=== PATIENT | female | born 1975 | race American Indian/Alaskan Native ===

== ENCOUNTER 2017-08-09 10:43 | Emergency (ER) | payer MEDICAID ==
[2017-08-09] MEDS ORDERED: ZOFRAN IV ONE (11:34)
[2017-08-09] MEDS ORDERED: NACL 0.9% 1000 ML 1,000 ML IV ONE (11:34)
--- NOTE | 2017-08-09 11:42 | Emergency Department Report ---
HPI - General Chief Complaint: Seizure Time Seen by Provider: 08/09/17 11:29 - HPI HPI: This is a 42-year-old female presents to the emergency department from home after she was found passed out. The patient says that she remembers looking at the window at her son this morning and then woke up on the floor. She had a headache both prior to passing out as well as afterwards her chest and complains of some left shoulder pain since the incident. She has a past mental history of migraines, hypertension. She is a tobacco smoker as well as some marijuana. She did not take anything for her symptoms and presentation. Patient admits that she does not "take care of myself" and has not seen a primary care doctor in a few years. She stopped taking her lisinopril for blood pressure years ago secondary to a cough produced. No recent travel or sick contacts at home. ED Past Medical Hx - Past Medical History Previous Medical History?: Yes Hx Hypertension: Yes Hx Headaches / Migraines: Yes - Surgical History Past Surgical History?: Yes Hx Cholecystectomy: Yes Additional Surgical History: 4 c-sections - Social History Smoking Status: Current Every Day Smoker Substance Use Type: Alcohol, Marijuana - Medications Home Medications: Home Medications Medication Instructions Recorded Confirmed Last Taken Type Cephalexin [Keflex] 500 mg PO BID #14 capsule 03/15/15 Unknown Rx Fluconazole [Diflucan] 150 mg PO ONCE #1 tablet 03/15/15 Unknown Rx traMADol [Ultram] 50 mg PO Q6HR PRN #20 tablet 02/10/16 Unknown Rx amLODIPine [Norvasc] 5 mg PO DAILY #30 tab 08/09/17 Unknown Rx ED Review of Systems ROS: Stated complaint: SEIZURE/HYPERTENSION Other details as noted in HPI Comment: All other systems reviewed and negative Constitutional: denies: chills, fever Eyes: denies: eye pain, eye discharge, vision change ENT: denies: ear pain, throat pain Respiratory: denies: cough, shortness of breath, wheezing Cardiovascular: syncope. denies: chest pain, palpitations Gastrointestinal: denies: abdominal pain, nausea, diarrhea Genitourinary: denies: urgency, dysuria, discharge Musculoskeletal: arthralgia. denies: back pain, joint swelling Skin: denies: rash, lesions Neurological: headache Physical Exam - Physical Exam Vital Signs: Vital Signs 08/09/17 10:57 Temperature 98.9 F Pulse Rate 69 Respiratory 16 Rate Blood Pressure 179/110 O2 Sat by Pulse 98 Oximetry Physical Exam: GENERAL: The patient is well-developed well-nourished. HENT: Normocephalic. Atraumatic. Patient has moist mucous membranes. EYES: Extraocular motions are intact. Pupils equal reactive to light bilaterally. No nystagmus. NECK: Supple. Trachea is midline. CHEST/LUNGS: Clear to auscultation. There is no respiratory distress noted. HEART/CARDIOVASCULAR: Regular. There is no tachycardia. There is no gallop rub or murmur. ABDOMEN: Abdomen is soft, nontender. Patient has normal bowel sounds. There is no abdominal distention. SKIN: There is no rash. There is no edema. There is no diaphoresis. NEURO: The patient is awake, alert, and oriented. The patient is cooperative. The patient has no focal neurologic deficits. The patient has normal speech. Cranial nerves II through XII grossly intact. MUSCULOSKELETAL: There is no tenderness or deformity. There is no evidence of acute injury. ED Course Vital Signs 08/09/17 10:57 Temperature 98.9 F Pulse Rate 69 Respiratory 16 Rate Blood Pressure 179/110 O2 Sat by Pulse 98 Oximetry ED Medical Decision Making - Lab Data Result diagrams: 08/09/17 12:09 08/09/17 12:09 - Radiology Data Radiology results: report reviewed, image reviewed interpreted by me: X-ray of the left shoulder does not show any fracture, as the patient or any acute process. CT of the head does not show any acute intracranial process including no ischemia, shift, mass, bleeding or skull fracture. Ultrasound of the upper abdomen shows a fatty pancreas. - Medical Decision Making 42-year-old female presents to the emergency department after having some type of a syncopal episode. CT of the head does not show any bleed, shift, mass or any acute process. She complained of some left shoulder pain which did not show any fracture or dislocation on x-ray. Labs are unremarkable except for elevated ALT. For this reason was done that showed a fatty pancreas but otherwise no acute process. She had some hypertension but it was at a reasonable level and did not require any acute intervention. The patient is been noncompliant with her medications for multiple years. Patient was reevaluated multiple times for multiple hours and has remained awake, alert without any further syncopal episodes and without any acute distress. She appeared safe for discharge home. She was started on Norvasc for her blood pressure and we discussed dietary changes and keeping a blood pressure log. She was given multiple referrals for primary care. She will return to the ER with any worsening of her symptoms or any acute distress. - Differential Diagnosis orthostatic hypotension, vasovagal, TIA Critical Care Time: No Critical care attestation.: If time is entered above; I have spent that time in minutes in the direct care of this critically ill patient, excluding procedure time. ED Disposition Clinical Impression: Transaminitis Hypertension Qualifiers: Hypertension type: essential hypertension Qualified Code(s): I10 - Essential ( primary) hypertension Syncope Qualifiers: Syncope type: unspecified Qualified Code(s): R55 - Syncope and collapse Disposition: TO HOME OR SELFCARE Is pt being admited?: No Condition: Stable Instructions: Syncope (ED), Hypertension (ED) Additional Instructions: Please follow up with a primary care physician in the next few days. I have given you a referral for a local senior java j2ee developer, Dr. Candelario, in case she would like to follow up regarding your elevated liver enzymes. I have restarted U on a blood pressure medication called Norvasc/amlodipine that is to be taken once daily. Try to stay away from foods that are high in salt and caffeinated products to open her blood pressure. Keep a blood pressure log. Return to the emergency Department with any worsening of your symptoms or any acute distress. Prescriptions: amLODIPine [Norvasc] 5 mg PO DAILY #30 tab Referrals: PRIMARY MD NADIYA [Primary Care Provider] - 3-5 Days ESMER BOURGEOIS MD [Staff Physician] - 3-5 Days DMITRY CANDELARIO MD [Staff Physician] - 3-5 Days [facility] [Outside] - 3-5 Days Time of Disposition: 14:28
--- NOTE | 2017-08-09 12:00 | Cat Scan Report ---
CT HEAD WITHOUT CONTRAST INDICATION: Syncope, headache. COMPARISON: None similar. FINDINGS: Noncontrast head CT demonstrates normal ventricles and sulci without acute or recent infarct, hemorrhage, mass effect or midline shift. No abnormal extra-axial fluid collections. Posterior fossa structures and basilar cisterns appear within normal limits. Symmetric eye globes. Mild ethmoid sinusitis, right more than left. Slight left maxillary sinus mucosal thickening. Clear remainder imaged paranasal sinuses and mastoid air cells. Intact calvarium. Normal overlying scalp soft tissues. Few radiopaque dental material incidentally noted. CONCLUSION: No acute intracranial CT abnormality, as described. Thank you for the opportunity to participate in this patient's care.
[2017-08-09 12:19] LABS: Urine Drugs of Abuse Note Disclamer
--- NOTE | 2017-08-09 12:23 | XRay Report ---
LEFT SHOULDER RADIOGRAPHS INDICATION: Left shoulder pain. COMPARISON: None similar. FINDINGS: Frontal and Y views of the left shoulder, 3 projections demonstrate normal humeral head contour, well positioned against the glenoid. Normal acromioclavicular joint. Preserved scapular contour. Normal visualized soft tissues, left ribs and lung. Borderline cardiomegaly not excluded. CONCLUSION: No acute left shoulder radiographic abnormality, as described. Thank you for the opportunity to participate in this patient's care.
[2017-08-09 12:30] LABS: Basophils % (Auto) 0.7 % (0.0-1.8); Eosinophils % (Auto) 1.2 % (0.0-4.3); Hematocrit 42.8 % (30.3-42.9); Mean Corpuscular HGB Conc 33 % (30-34); Mean Corpuscular Hemoglobin 29 pg (28-32); Mean Corpuscular Volume 88 fl (79-97); Platelet Count 274 K/mm3 (140-440); Red Blood Count 4.85 M/mm3 (3.65-5.03); Red Cell Distribution Width 14.8 % (13.2-15.2); White Blood Count 12.1 K/mm3 (4.5-11.0)
[2017-08-09 12:43] LABS: Bacteria,Urine 1+ /HPF (Negative); Bilirubin,Urine NEG (Negative); Blood,Urine MOD (Negative); Ketones,Urine 20 mg/dL (Negative); Leukocyte Esterase,Urine TR (Negative); Mucus,Urine FEW /HPF; Nitrite,Urine NEG (Negative); Urobilinogen,Urine < 2.0 mg/dL (<2.0)
[2017-08-09 12:47] LABS: Alanine Aminotransferase 108 units/L (7-56); Albumin 4.3 g/dL (3.9-5); Albumin/Globulin Ratio 1.4 %; Alkaline Phosphatase 136 units/L (35-129); Anion Gap 21 mmol/L; BUN/Creatinine Ratio 11.66; Blood Urea Nitrogen 7 mg/dL (7-17); Calcium 9.5 mg/dL (8.4-10.2); Carbon Dioxide 22 mmol/L (22-30); Chloride 99.8 mmol/L (98-107); Creatine Kinase 111 units/L (30-135); Glucose 86 mg/dL (65-100); Potassium 3.7 mmol/L (3.6-5.0); Sodium 139 mmol/L (137-145); Total Protein 7.4 g/dL (6.3-8.2)
--- NOTE | 2017-08-09 14:20 | Ultrasound Report ---
Limited abdominal ultrasound: Elevated liver enzymes. The pancreas is slightly echogenic but otherwise unremarkable. The liver is normal in size and contour with normal echo pattern. The gallbladder has been removed. The CBD diameter is 6 mm and otherwise unremarkable. The right renal length is 10.2 cm and echogenically normal. The transverse diameter of the proximal abdominal aorta is 1.9 cm. Impression: Slightly fatty pancreas but otherwise unremarkable exam.
[2017-08-09 15:13] VITALS: BP 145/98
== END 2017-08-09 14:30 | disposition home or self-care (01) ==
LOC: ED 10:43
DX: R74.0 Nonspecific elevation of levels of transaminase and lactic acid dehydrogenase [LDH] (principal); I10 Essential (primary) hypertension; R55 Syncope and collapse; G43.909 Migraine, unspecified, not intractable, without status migrainosus; F17.200 Nicotine dependence, unspecified, uncomplicated; F12.10 Cannabis abuse, uncomplicated
CPT/HCPCS: 36415; 70450; 73030; 76705; 80053; 80307; 81001; 82550; 84443; 84484; 85025; 93005; 93010; 96361; 96374; 99285; G0480; J2405; J7030; 80320

== ENCOUNTER 2017-11-02 02:01 | Emergency (ER) | payer MEDICAID ==
[2017-11-02] MEDS ORDERED: CATAPRES PO ONE (02:56)
[2017-11-02] MEDS ORDERED: ZOFRAN ODT PO ONE (02:56)
[2017-11-02 03:29] LABS: Basophils % (Auto) 0.4 % (0.0-1.8); Eosinophils % (Auto) 1.3 % (0.0-4.3); Hematocrit 39.5 % (30.3-42.9); Hemoglobin 13.3 gm/dl (10.1-14.3); Mean Corpuscular HGB Conc 34 % (30-34); Mean Corpuscular Hemoglobin 30 pg (28-32); Mean Corpuscular Volume 88 fl (79-97); Platelet Count 276 K/mm3 (140-440); Red Blood Count 4.51 M/mm3 (3.65-5.03); Red Cell Distribution Width 14.3 % (13.2-15.2); White Blood Count 10.9 K/mm3 (4.5-11.0)
[2017-11-02 03:45] LABS: Anion Gap 18 mmol/L; BUN/Creatinine Ratio 17; Blood Urea Nitrogen 10 mg/dL (7-17); Calcium 9.3 mg/dL (8.4-10.2); Carbon Dioxide 26 mmol/L (22-30); Chloride 100.6 mmol/L (98-107); Glucose 87 mg/dL (65-100); Potassium 3.4 mmol/L (3.6-5.0); Sodium 141 mmol/L (137-145)
[2017-11-02] MEDS ORDERED: MUCINEX ER PO ONE (09:47)
[2017-11-02] MEDS ORDERED: TESSALON PERLES PO ONE (09:47)
[2017-11-02] MEDS ORDERED: TORADOL IM ONE (09:48)
--- NOTE | 2017-11-02 09:50 | Emergency Department Report ---
HPI - General Chief Complaint: Chest Pain Time Seen by Provider: 11/02/17 08:51 - HPI HPI: The patient is a 42-year-old female who presents for evaluation of chest pain. The patient reports right-sided chest pain for the past one week, 10/10 in severity, sharp in quality, worse with coughing, radiating to the right sided neck. She has also been experiencing a nonproductive cough.The patient denies trauma to the neck or chest fever, neck pain, parasthesias, dyspnea, hemoptysis , palpitations, dizziness, syncope, unilateral leg swelling, calf muscle pain. Patient also denies cocaine or other stimulant use, history of DVT or PE, recent immobilization, or history of cancer. ED Past Medical Hx - Past Medical History Hx Hypertension: Yes Hx Headaches / Migraines: Yes - Surgical History Hx Cholecystectomy: Yes Additional Surgical History: 4 c-sections - Social History Smoking Status: Current Every Day Smoker Substance Use Type: None - Medications Home Medications: Home Medications Medication Instructions Recorded Confirmed Last Taken Type Cephalexin [Keflex] 500 mg PO BID #14 capsule 03/15/15 Unknown Rx Fluconazole [Diflucan] 150 mg PO ONCE #1 tablet 03/15/15 Unknown Rx Benzonatate [Tessalon Perles] 100 mg PO Q8HR #20 capsule 11/02/17 Unknown Rx amLODIPine [Norvasc] 5 mg PO DAILY #30 tab 11/02/17 Unknown Rx guaiFENesin [Mucinex] 600 mg PO BID #20 tab.er.12h 11/02/17 Unknown Rx traMADol [Ultram 50 MG tab] 50 mg PO Q6HR PRN #14 tablet 11/02/17 Unknown Rx ED Review of Systems ROS: Stated complaint: C/P R. SIDE THROBBING PAIN Other details as noted in HPI Constitutional: denies: fever ENT: denies: throat or neck pain Respiratory: denies: cough, shortness of breath Cardiovascular: reports chest pain Endocrine: denies unexplained weight loss or gain Gastrointestinal: denies: abdominal pain, nausea Genitourinary: denies: dysuria Musculoskeletal: denies: leg swelling Skin: denies: rash Neurological: denies: headache Hematological/Lymphatic: denies: easy bleeding or easy bruising Psych: denies sadness or hopelessness Physical Exam - Physical Exam Vital Signs: Vital Signs 11/02/17 11/02/17 11/02/17 02:45 03:03 05:13 Temperature 98.5 F 97.6 F Pulse Rate 88 88 68 Respiratory 18 Rate Blood Pressure 205/129 205/129 149/101 Blood Pressure [Right] O2 Sat by Pulse 98 100 Oximetry 11/02/17 11/02/17 11/02/17 07:50 08:05 08:15 Temperature 97.4 F L Pulse Rate 61 76 61 Respiratory 14 13 13 Rate Blood Pressure 100/65 Blood Pressure 104/58 [Right] O2 Sat by Pulse 99 99 Oximetry 11/02/17 11/02/17 11/02/17 08:31 08:45 09:00 Temperature Pulse Rate 61 59 L 57 L Respiratory 13 13 14 Rate Blood Pressure 109/74 116/71 112/69 Blood Pressure [Right] O2 Sat by Pulse 100 100 97 Oximetry Physical Exam: General: well-nourished, well-developed, no acute distress Head: Normocephalic, atraumatic Eyes: normal sclera ENT: Mucous membranes are pink and moist Neck: trachea midline, neck supple, No neck stiffness, no cervical adenopathy Respiratory: Breath sounds equal bilaterally, no wheezing, rales, or rhonchi Cardio: S1 and S2 present, no murmurs, rubs, gallops, capillary refill is brisk Abdomen: Normoactive bowel sounds, soft abdomen, no rigidity, no guarding or rebound tenderness Musc: No pitting edema Skin: No rash Neuro: no facial drooping, normal speech Psych: Normal affect ED Course Vital Signs 11/02/17 11/02/17 11/02/17 02:45 03:03 05:13 Temperature 98.5 F 97.6 F Pulse Rate 88 88 68 Respiratory 18 Rate Blood Pressure 205/129 205/129 149/101 Blood Pressure [Right] O2 Sat by Pulse 98 100 Oximetry 11/02/17 11/02/17 11/02/17 07:50 08:05 08:15 Temperature 97.4 F L Pulse Rate 61 76 61 Respiratory 14 13 13 Rate Blood Pressure 100/65 Blood Pressure 104/58 [Right] O2 Sat by Pulse 99 99 Oximetry 11/02/17 11/02/17 11/02/17 08:31 08:45 09:00 Temperature Pulse Rate 61 59 L 57 L Respiratory 13 13 14 Rate Blood Pressure 109/74 116/71 112/69 Blood Pressure [Right] O2 Sat by Pulse 100 100 97 Oximetry ED Medical Decision Making - Lab Data Result diagrams: 11/02/17 03:09 11/02/17 03:09 - Medical Decision Making The patient was seen and examined by myself. The patient is placed on a aircraft worker and continuous pulse ox. On initial evaluation, the patient was found to be in no distress. EKG was negative for findings suggestive of acute cardiac infarct. Labs and imaging are obtained. The patient is given IM dose of Toradol for pain, plenty for elevated blood pressure, Mucinex for congestion , and Tessalon Perles for her cough. Chest x-ray is negative for pneumothorax, focal consolidation, pulmonary vascular congestion, pleural effusion, or other obvious acute cardiopulmonary disease process. Lab results were non-concerning including levels of troponin, WBC, hemoglobin, hematocrit, electrolytes, renal function. The patient was reevaluated and reported that their symptoms were markedly improved. As the patient has a JACINTO risk score less than 2, and a well 's score less than 2, the patient is at low risk of ACS or pulmonary emboli etiology of their symptoms. The patient is stable for discharge with outpatient follow-up. The patient is given follow-up and return instructions. The patient expressed understanding and agreed with the plan. The patient is discharged in stable condition. Critical care attestation.: If time is entered above; I have spent that time in minutes in the direct care of this critically ill patient, excluding procedure time. ED Disposition Clinical Impression: Acute chest pain, URI, acute, Right ear pain, Neck pain on right side, Acute viral syndrome, Hypertensive urgency Disposition: DC- TO HOME OR SELFCARE Is pt being admited?: No Does the pt Need Aspirin: No Condition: Stable Instructions: Chest Pain (ED), Costochondritis (ED), Upper Respiratory Infection (ED), Chronic Hypertension (ED), Viral Syndrome (ED), Musculoskeletal Pain (ED) Prescriptions: amLODIPine [Norvasc] 5 mg PO DAILY #30 tab Benzonatate [Tessalon Perles] 100 mg PO Q8HR #20 capsule guaiFENesin [Mucinex] 600 mg PO BID #20 tab.er.12h traMADol [Ultram 50 MG tab] 50 mg PO Q6HR PRN #14 tablet PRN Reason: Pain Referrals: PRIMARY CARE, [Primary Care Provider] - 3-5 Days Time of Disposition: 09:48
--- NOTE | 2017-11-02 10:13 | XRay Report ---
AP CHEST: HISTORY: chest pain AP view of the chest demonstrates a normal mediastinal and cardiac contour with clear lungs and normal bony and soft tissue structures. IMPRESSION: Unremarkable AP chest.
[2017-11-02 13:18] VITALS: BP 112/83
== END 2017-11-02 11:50 | disposition home or self-care (01) ==
LOC: ED 02:01
DX: J06.9 Acute upper respiratory infection, unspecified (principal); B34.9 Viral infection, unspecified; H92.01 Otalgia, right ear; M54.2 Cervicalgia; I16.0 Hypertensive urgency; I10 Essential (primary) hypertension; F17.200 Nicotine dependence, unspecified, uncomplicated
CPT/HCPCS: 36415; 71010; 80048; 84484; 85025; 93005; 93010; 96372; 99284; J1885; Q0162

== ENCOUNTER 2018-06-14 11:34 | Emergency (ER) | payer MEDICAID ==
[2018-06-14 11:57] VITALS: BP 185/127
--- NOTE | 2018-06-14 12:32 | Emergency Department Report ---
ED Headache HPI - General Chief Complaint: Headache Stated Complaint: EAR PAIN Time Seen by Provider: 06/14/18 12:14 - History of Present Illness Initial Comments: Patient is a 43-year-old black female who is presenting with right ear pain for the past 5 years. Patient states she was lying down at that time and her daughter put a Q-tip in her ear and she's been having pain since. Patient states is also some pain in the right side of his neck with some body aches. Patient this week as developed some mild headaches is convinced that she has meningitis. Patient has not had fever nausea vomiting and diarrhea. Patient has a history of hypertension and does not take meds. Patient denies chest pain or shortness of breath exertional symptoms at this time. Allergies/Adverse Reactions: Allergies No Known Allergies Allergy (Verified 03/30/15 17:23) Home Medications: Ambulatory Orders Cephalexin [Keflex] 500 mg PO BID #14 capsule 03/15/15 Fluconazole [Diflucan] 150 mg PO ONCE #1 tablet 03/15/15 Benzonatate [Tessalon Perles] 100 mg PO Q8HR #20 capsule 11/02/17 guaiFENesin [Mucinex] 600 mg PO BID #20 tab.er.12h 11/02/17 traMADol [Ultram 50 MG tab] 50 mg PO Q6HR PRN #14 tablet 11/02/17 Ibuprofen [Motrin] 800 mg PO Q8HR PRN #30 tablet 06/14/18 Neomy/Polymyx B/Hc Otic Susp [Cortisporin (Otic) Susp] 4 drops OTIC TID #1 bottle 06/14/18 amLODIPine [Norvasc] 5 mg PO DAILY #30 tab 06/14/18 ED Review of Systems ROS: Stated complaint: EAR PAIN Other details as noted in HPI Comment: All other systems reviewed and negative ED Past Medical Hx - Past Medical History Hx Hypertension: Yes Hx Headaches / Migraines: Yes - Surgical History Hx Cholecystectomy: Yes Additional Surgical History: 4 c-sections - Social History Smoking Status: Current Every Day Smoker Substance Use Type: None - Medications Home Medications: Home Medications Medication Instructions Recorded Confirmed Last Taken Type Cephalexin [Keflex] 500 mg PO BID #14 capsule 03/15/15 Unknown Rx Fluconazole [Diflucan] 150 mg PO ONCE #1 tablet 03/15/15 Unknown Rx Benzonatate [Tessalon Perles] 100 mg PO Q8HR #20 capsule 11/02/17 Unknown Rx guaiFENesin [Mucinex] 600 mg PO BID #20 tab.er.12h 11/02/17 Unknown Rx traMADol [Ultram 50 MG tab] 50 mg PO Q6HR PRN #14 tablet 11/02/17 Unknown Rx Ibuprofen [Motrin] 800 mg PO Q8HR PRN #30 tablet 06/14/18 Unknown Rx Neomy/Polymyx B/Hc Otic Susp 4 drops OTIC TID #1 bottle 06/14/18 Unknown Rx [Cortisporin (Otic) Susp] amLODIPine [Norvasc] 5 mg PO DAILY #30 tab 06/14/18 Unknown Rx ED Physical Exam - General Limitations: No Limitations General appearance: alert, in no apparent distress - Head Head exam: Present: atraumatic, normocephalic - Eye Eye exam: Present: normal appearance - ENT ENT exam: Present: mucous membranes moist. Absent: TM's normal bilaterally ( some mild erythema to the TM is clear fluid behind TM is present) - Neck Neck exam: Present: normal inspection - Respiratory Respiratory exam: Present: normal lung sounds bilaterally. Absent: respiratory distress - Cardiovascular Cardiovascular Exam: Present: regular rate, normal rhythm. Absent: systolic murmur, diastolic murmur, rubs, gallop - GI/Abdominal GI/Abdominal exam: Present: soft, normal bowel sounds - Extremities Exam Extremities exam: Present: normal inspection - Back Exam Back exam: Present: normal inspection - Neurological Exam Neurological exam: Present: alert, oriented X3 - Psychiatric Psychiatric exam: Present: normal affect, normal mood - Skin Skin exam: Present: warm, dry, intact, normal color. Absent: rash ED Course Vital Signs 06/14/18 11:53 Temperature 98.4 F Pulse Rate 72 Respiratory 16 Rate Blood Pressure 185/127 O2 Sat by Pulse 100 Oximetry ED Medical Decision Making - Medical Decision Making Patient's headache most likely associated with elevated blood pressure. Blood pressure was 185/127. Patient is showing no signs of end organ damage at this time. Patient be started on blood pressure medicines and given follow-up. Patient's has no neck stiffness is moving her head [id number] and up and down while speaking. Patient is afebrile do not see signs and symptoms of meningitis this time clinically. Patient does have some mild erythema to her ear. Patient be started on Cortisporin drops and have follow-up with ENT. Was some waxy buildup in the ear canal did instruct to complete exam. This patient' s ear symptoms been going on for roughly 5 years do not see any emergent condition with her ear at this time. Critical care attestation.: If time is entered above; I have spent that time in minutes in the direct care of this critically ill patient, excluding procedure time. ED Disposition Clinical Impression: Hypertensive urgency Otitis externa Qualifiers: Otitis externa type: unspecified type Chronicity: chronic Laterality: right Qualified Code(s): H60.61 - Unspecified chronic otitis externa, right ear Disposition: TO HOME OR SELFCARE Is pt being admited?: No Does the pt Need Aspirin: No Condition: Stable Instructions: Hypertension (ED) Prescriptions: amLODIPine [Norvasc] 5 mg PO DAILY #30 tab Ibuprofen [Motrin] 800 mg PO Q8HR PRN #30 tablet PRN Reason: Pain , Severe (7-10) Neomy/Polymyx B/Hc Otic Susp [Cortisporin (Otic) Susp] 4 drops OTIC TID #1 bottle Referrals: DESHAWN PARMAR MD [Referring] - 3-5 Days [facility] [Outside] - 3-5 Days
== END 2018-06-14 12:42 | disposition home or self-care (01) ==
LOC: ED 11:34
DX: H60.61 Unspecified chronic otitis externa, right ear (principal); I10 Essential (primary) hypertension; G43.909 Migraine, unspecified, not intractable, without status migrainosus; F17.200 Nicotine dependence, unspecified, uncomplicated; Z90.49 Acquired absence of other specified parts of digestive tract
CPT/HCPCS: 99281

== ENCOUNTER 2018-06-23 10:56 | Emergency (ER) | payer MEDICAID ==
[2018-06-23] MEDS ORDERED: NACL 0.9% 1000 ML 1,000 ML IV ONE (11:23)
[2018-06-23] MEDS ORDERED: PEPCID IV ONE (11:23)
[2018-06-23] MEDS ORDERED: ZOFRAN IV ONE (11:23)
[2018-06-23] MEDS ORDERED: LOMOTIL PO ONE (11:24)
[2018-06-23 11:31] LABS: Hematocrit 46.2 % (30.3-42.9); Hemoglobin 15.4 gm/dl (10.1-14.3); Mean Corpuscular HGB Conc 33 % (30-34); Mean Corpuscular Hemoglobin 29 pg (28-32); Mean Corpuscular Volume 87 fl (79-97); Platelet Count 351 K/mm3 (140-440); Red Blood Count 5.33 M/mm3 (3.65-5.03); Red Cell Distribution Width 14.7 % (13.2-15.2)
--- NOTE | 2018-06-23 11:35 | Emergency Department Report ---
HPI - General Chief Complaint: Altered Mental Status Time Seen by Provider: 06/23/18 11:18 - HPI HPI: Room 19 The patient is a 43-year-old female presenting with a chief complaint of nausea and vomiting. Significant other states that they were drinking last night starting at approximately 20:00. The patient reportedly drank 1/2 cup of vodka. Patient began vomiting at 23:00 and intractable. The patient states she was incontinent of stool. Patient complains of nausea and states that she feels like she is about to throw up. The patient was asymptomatic prior to consuming alcohol Location: Gastrointestinal system Duration: [See above] Quality: Nausea vomiting Severity: Moderate Modifying factors: [see above] Context: [see above] Mode of transportation: [not driving] ED Past Medical Hx - Past Medical History Hx Hypertension: Yes Hx Headaches / Migraines: Yes - Surgical History Hx Cholecystectomy: Yes Additional Surgical History: 4 c-sections - Family History Family history: no significant - Social History Smoking Status: Current Every Day Smoker (1/3 pack per day) Substance Use Type: Alcohol (occasional), Marijuana - Medications Home Medications: Home Medications Medication Instructions Recorded Confirmed Last Taken Type Cephalexin [Keflex] 500 mg PO BID #14 capsule 03/15/15 Unknown Rx Fluconazole [Diflucan] 150 mg PO ONCE #1 tablet 03/15/15 Unknown Rx Benzonatate [Tessalon Perles] 100 mg PO Q8HR #20 capsule 11/02/17 Unknown Rx guaiFENesin [Mucinex] 600 mg PO BID #20 tab.er.12h 11/02/17 Unknown Rx traMADol [Ultram 50 MG tab] 50 mg PO Q6HR PRN #14 tablet 11/02/17 Unknown Rx Ibuprofen [Motrin] 800 mg PO Q8HR PRN #30 tablet 06/14/18 Unknown Rx Neomy/Polymyx B/Hc Otic Susp 4 drops OTIC TID #1 bottle 06/14/18 Unknown Rx [Cortisporin (Otic) Susp] amLODIPine [Norvasc] 5 mg PO DAILY #30 tab 06/14/18 Unknown Rx Famotidine [Pepcid] 20 mg PO BID #10 tablet 06/23/18 Unknown Rx Promethazine HCl [Phenergan SUPPOS] 25 mg RC Q6H PRN #5 supp.rect 07/23/18 Unknown Rx Promethazine [Phenergan TAB] 25 mg PO Q6HR PRN #20 tab 06/23/18 Unknown Rx ED Review of Systems ROS: Stated complaint: N/V Other details as noted in HPI Constitutional: no symptoms reported Gastrointestinal: nausea, vomiting, diarrhea Physical Exam - Physical Exam Vital Signs: Vital Signs 06/23/18 10:56 Pulse Rate 61 Respiratory 16 Rate Blood Pressure 196/106 O2 Sat by Pulse 100 Oximetry Physical Exam: GENERAL: The patient is well-developed well-nourished female lying on stretcher appearing to be in mild discomfort. [] HEENT: Normocephalic. Atraumatic. Extraocular motions are intact. PERRL. Right TM clear NECK: Supple. Trachea midline CHEST/LUNGS: Clear to auscultation. There is no respiratory distress noted. HEART/CARDIOVASCULAR: Regular. There is no tachycardia. There is no gallop rub or murmur. ABDOMEN: Abdomen is soft, nontender. Patient has normal bowel sounds. There is no abdominal distention. SKIN: There is no rash. There is no edema. There is no diaphoresis. NEURO: The patient is awake but appears fatigued. The patient is cooperative. The patient has normal speech MUSCULOSKELETAL: There is no evidence of acute injury. ED Course Vital Signs 06/23/18 10:56 Pulse Rate 61 Respiratory 16 Rate Blood Pressure 196/106 O2 Sat by Pulse 100 Oximetry - Reevaluation(s) Reevaluation #1: 06/23/18 16:10 Patient states she feels great now. Patient asking for food. Will po challenge ED Medical Decision Making - Lab Data Result diagrams: 06/23/18 11:17 06/23/18 11:17 Laboratory Tests 06/23/18 06/23/18 06/23/18 11:03 11:17 11:17 WBC 16.5 H RBC 5.33 H Hgb 15.4 H Hct 46.2 H MCV 87 MCH 29 MCHC 33 RDW 14.7 Plt Count 351 Add Manual Diff Complete Total Counted 100 Seg Neuts % (Manual) 88.0 H Band Neutrophils % 0 Lymphocytes % (Manual) 8.0 L Reactive Lymphs % (Man) 0 Monocytes % (Manual) 3.0 Eosinophils % (Manual) 0 Basophils % (Manual) 1.0 Metamyelocytes % 0 Myelocytes % 0 Promyelocytes % 0 Blast Cells % 0 Nucleated RBC % Not Reportable Seg Neutrophils # Man 14.5 H Band Neutrophils # 0.0 Lymphocytes # (Manual) 1.3 Abs React Lymphs (Man) 0.0 Monocytes # (Manual) 0.5 Eosinophils # (Manual) 0.0 Basophils # (Manual) 0.2 H Metamyelocytes # 0.0 Myelocytes # 0.0 Promyelocytes # 0.0 Blast Cells # 0.0 WBC Morphology Not Reportable Hypersegmented Neuts Not Reportable Hyposegmented Neuts Not Reportable Hypogranular Neuts Not Reportable Smudge Cells Not Reportable Toxic Granulation Not Reportable Toxic Vacuolation Few Dohle Bodies Not Reportable Pelger-Huet Anomaly Not Reportable Eric Rods Not Reportable Platelet Estimate Cons Clumped Platelets Not Reportable Plt Clumps, EDTA Not Reportable Large Platelets Not Reportable Giant Platelets Not Reportable Platelet Satelliting Not Reportable Plt Morphology Comment Not Reportable RBC Morphology Normal Dimorphic RBCs Not Reportable Polychromasia Not Reportable Hypochromasia Not Reportable Poikilocytosis Not Reportable Anisocytosis Not Reportable Microcytosis Not Reportable Macrocytosis Not Reportable Spherocytes Not Reportable Pappenheimer Bodies Not Reportable Sickle Cells Not Reportable Target Cells Not Reportable Tear Drop Cells Not Reportable Ovalocytes Not Reportable Helmet Cells Not Reportable Morrison-[place]arlton Bodies Not Reportable [place] Rings Not Reportable [place] Cells Not Reportable Bite Cells Not Reportable Crenated Cell Not Reportable Elliptocytes Not Reportable Acanthocytes (Spur) Not Reportable Rouleaux Not Reportable Hemoglobin C Crystals Not Reportable Schistocytes Not Reportable Malaria parasites Not Reportable Rafa Bodies Not Reportable Hem Pathologist Commnt No PT INR APTT Sodium 141 Potassium 3.5 L Chloride 102.8 Carbon Dioxide 20 L Anion Gap 22 BUN 11 Creatinine 0.5 L Estimated GFR > 60 BUN/Creatinine Ratio 22 Glucose 149 H POC Glucose 140 H Calcium 9.8 Total Bilirubin 0.50 AST 27 ALT 36 Alkaline Phosphatase 98 Ammonia Total Creatine Kinase CK-MB (CK-2) CK-MB (CK-2) Rel Index Troponin T Total Protein 8.3 H Albumin 4.7 Albumin/Globulin Ratio 1.3 Lipase TSH HCG, Qual Urine Color Urine Turbidity Urine pH Ur Specific [place] Urine Protein Urine Glucose (UA) Urine Ketones Urine Blood Urine Nitrite Urine Bilirubin Urine Urobilinogen Ur Leukocyte Esterase Urine WBC (Auto) Urine RBC (Auto) U Epithel Cells (Auto) Urine Mucus Urine Opiates Screen Urine Methadone Screen Ur Barbiturates Screen Ur Phencyclidine Scrn Ur Amphetamines Screen U Benzodiazepines Scrn Urine Cocaine Screen U Marijuana (THC) Screen Drugs of Abuse Note Plasma/Serum Alcohol 06/23/18 06/23/18 06/23/18 11:17 11:17 11:17 WBC RBC Hgb Hct MCV MCH MCHC RDW Plt Count Add Manual Diff Total Counted Seg Neuts % (Manual) Band Neutrophils % Lymphocytes % (Manual) Reactive Lymphs % (Man) Monocytes % (Manual) Eosinophils % (Manual) Basophils % (Manual) Metamyelocytes % Myelocytes % Promyelocytes % Blast Cells % Nucleated RBC % Seg Neutrophils # Man Band Neutrophils # Lymphocytes # (Manual) Abs React Lymphs (Man) Monocytes # (Manual) Eosinophils # (Manual) Basophils # (Manual) Metamyelocytes # Myelocytes # Promyelocytes # Blast Cells # WBC Morphology Hypersegmented Neuts Hyposegmented Neuts Hypogranular Neuts Smudge Cells Toxic Granulation Toxic Vacuolation Dohle Bodies Pelger-Huet Anomaly Eric Rods Platelet Estimate Clumped Platelets Plt Clumps, EDTA Large Platelets Giant Platelets Platelet Satelliting Plt Morphology Comment RBC Morphology Dimorphic RBCs Polychromasia Hypochromasia Poikilocytosis Anisocytosis Microcytosis Macrocytosis Spherocytes Pappenheimer Bodies Sickle Cells Target Cells Tear Drop Cells Ovalocytes Helmet Cells Morrison-Marlton Bodies [place] Rings [place] Cells Bite Cells Crenated Cell Elliptocytes Acanthocytes (Spur) Rouleaux Hemoglobin C Crystals Schistocytes Malaria parasites Rafa Bodies Hem Pathologist Commnt PT INR APTT Sodium Potassium Chloride Carbon Dioxide Anion Gap BUN Creatinine Estimated GFR BUN/Creatinine Ratio Glucose POC Glucose Calcium Total Bilirubin AST ALT Alkaline Phosphatase Ammonia Total Creatine Kinase CK-MB (CK-2) CK-MB (CK-2) Rel Index Troponin T Total Protein Albumin Albumin/Globulin Ratio Lipase TSH 0.319 HCG, Qual Negative Urine Color Urine Turbidity Urine pH Ur Specific [place] Urine Protein Urine Glucose (UA) Urine Ketones Urine Blood Urine Nitrite Urine Bilirubin Urine Urobilinogen Ur Leukocyte Esterase Urine WBC (Auto) Urine RBC (Auto) U Epithel Cells (Auto) Urine Mucus Urine Opiates Screen Urine Methadone Screen Ur Barbiturates Screen Ur Phencyclidine Scrn Ur Amphetamines Screen U Benzodiazepines Scrn Urine Cocaine Screen U Marijuana (THC) Screen Drugs of Abuse Note Plasma/Serum Alcohol < 0.01 06/23/18 06/23/18 06/23/18 11:17 11:17 11:33 WBC RBC Hgb Hct MCV MCH MCHC RDW Plt Count Add Manual Diff Total Counted Seg Neuts % (Manual) Band Neutrophils % Lymphocytes % (Manual) Reactive Lymphs % (Man) Monocytes % (Manual) Eosinophils % (Manual) Basophils % (Manual) Metamyelocytes % Myelocytes % Promyelocytes % Blast Cells % Nucleated RBC % Seg Neutrophils # Man Band Neutrophils # Lymphocytes # (Manual) Abs React Lymphs (Man) Monocytes # (Manual) Eosinophils # (Manual) Basophils # (Manual) Metamyelocytes # Myelocytes # Promyelocytes # Blast Cells # WBC Morphology Hypersegmented Neuts Hyposegmented Neuts Hypogranular Neuts Smudge Cells Toxic Granulation Toxic Vacuolation Dohle Bodies Pelger-Huet Anomaly Eric Rods Platelet Estimate Clumped Platelets Plt Clumps, EDTA Large Platelets Giant Platelets Platelet Satelliting Plt Morphology Comment RBC Morphology Dimorphic RBCs Polychromasia Hypochromasia Poikilocytosis Anisocytosis Microcytosis Macrocytosis Spherocytes Pappenheimer Bodies Sickle Cells Target Cells Tear Drop Cells Ovalocytes Helmet Cells Morrison-Marlton Bodies [place] Rings [place] Cells Bite Cells Crenated Cell Elliptocytes Acanthocytes (Spur) Rouleaux Hemoglobin C Crystals Schistocytes Malaria parasites Rafa Bodies Hem Pathologist Commnt PT 13.4 INR 0.97 APTT 24.9 Sodium Potassium Chloride Carbon Dioxide Anion Gap BUN Creatinine Estimated GFR BUN/Creatinine Ratio Glucose POC Glucose Calcium Total Bilirubin AST ALT Alkaline Phosphatase Ammonia Total Creatine Kinase 103 CK-MB (CK-2) 1.5 CK-MB (CK-2) Rel Index 1.4 Troponin T < 0.010 Total Protein Albumin Albumin/Globulin Ratio Lipase 16 TSH HCG, Qual Urine Color Urine Turbidity Urine pH Ur Specific [place] Urine Protein Urine Glucose (UA) Urine Ketones Urine Blood Urine Nitrite Urine Bilirubin Urine Urobilinogen Ur Leukocyte Esterase Urine WBC (Auto) Urine RBC (Auto) U Epithel Cells (Auto) Urine Mucus Urine Opiates Screen Urine Methadone Screen Ur Barbiturates Screen Ur Phencyclidine Scrn Ur Amphetamines Screen U Benzodiazepines Scrn Urine Cocaine Screen U Marijuana (THC) Screen Drugs of Abuse Note Plasma/Serum Alcohol 06/23/18 06/23/18 06/23/18 11:33 12:08 15:11 WBC RBC Hgb Hct MCV MCH MCHC RDW Plt Count Add Manual Diff Total Counted Seg Neuts % (Manual) Band Neutrophils % Lymphocytes % (Manual) Reactive Lymphs % (Man) Monocytes % (Manual) Eosinophils % (Manual) Basophils % (Manual) Metamyelocytes % Myelocytes % Promyelocytes % Blast Cells % Nucleated RBC % Seg Neutrophils # Man Band Neutrophils # Lymphocytes # (Manual) Abs React Lymphs (Man) Monocytes # (Manual) Eosinophils # (Manual) Basophils # (Manual) Metamyelocytes # Myelocytes # Promyelocytes # Blast Cells # WBC Morphology Hypersegmented Neuts Hyposegmented Neuts Hypogranular Neuts Smudge Cells Toxic Granulation Toxic Vacuolation Dohle Bodies Pelger-Huet Anomaly Eric Rods Platelet Estimate Clumped Platelets Plt Clumps, EDTA Large Platelets Giant Platelets Platelet Satelliting Plt Morphology Comment RBC Morphology Dimorphic RBCs Polychromasia Hypochromasia Poikilocytosis Anisocytosis Microcytosis Macrocytosis Spherocytes Pappenheimer Bodies Sickle Cells Target Cells Tear Drop Cells Ovalocytes Helmet Cells Morrison-Marlton Bodies [place] Rings [place] Cells Bite Cells Crenated Cell Elliptocytes Acanthocytes (Spur) Rouleaux Hemoglobin C Crystals Schistocytes Malaria parasites Rafa Bodies Hem Pathologist Commnt PT INR APTT Sodium Potassium Chloride Carbon Dioxide Anion Gap BUN Creatinine Estimated GFR BUN/Creatinine Ratio Glucose POC Glucose 94 Calcium Total Bilirubin AST ALT Alkaline Phosphatase Ammonia 42.0 Total Creatine Kinase CK-MB (CK-2) CK-MB (CK-2) Rel Index Troponin T Total Protein Albumin Albumin/Globulin Ratio Lipase TSH HCG, Qual Urine Color Yellow Urine Turbidity Clear Urine pH 7.0 Ur Specific [place] 1.019 Urine Protein 100 mg/dl Urine Glucose (UA) Neg Urine Ketones Tr Urine Blood Sm Urine Nitrite Neg Urine Bilirubin Neg Urine Urobilinogen < 2.0 Ur Leukocyte Esterase Neg Urine WBC (Auto) 2.0 Urine RBC (Auto) 14.0 U Epithel Cells (Auto) 8.0 Urine Mucus Few Urine Opiates Screen Urine Methadone Screen Ur Barbiturates Screen Ur Phencyclidine Scrn Ur Amphetamines Screen U Benzodiazepines Scrn Urine Cocaine Screen U Marijuana (THC) Screen Drugs of Abuse Note Plasma/Serum Alcohol 06/23/18 15:11 WBC RBC Hgb Hct MCV MCH MCHC RDW Plt Count Add Manual Diff Total Counted Seg Neuts % (Manual) Band Neutrophils % Lymphocytes % (Manual) Reactive Lymphs % (Man) Monocytes % (Manual) Eosinophils % (Manual) Basophils % (Manual) Metamyelocytes % Myelocytes % Promyelocytes % Blast Cells % Nucleated RBC % Seg Neutrophils # Man Band Neutrophils # Lymphocytes # (Manual) Abs React Lymphs (Man) Monocytes # (Manual) Eosinophils # (Manual) Basophils # (Manual) Metamyelocytes # Myelocytes # Promyelocytes # Blast Cells # WBC Morphology Hypersegmented Neuts Hyposegmented Neuts Hypogranular Neuts Smudge Cells Toxic Granulation Toxic Vacuolation Dohle Bodies Pelger-Huet Anomaly Eric Rods Platelet Estimate Clumped Platelets Plt Clumps, EDTA Large Platelets Giant Platelets Platelet Satelliting Plt Morphology Comment RBC Morphology Dimorphic RBCs Polychromasia Hypochromasia Poikilocytosis Anisocytosis Microcytosis Macrocytosis Spherocytes Pappenheimer Bodies Sickle Cells Target Cells Tear Drop Cells Ovalocytes Helmet Cells Morrison-Marlton Bodies [place] Rings [place] Cells Bite Cells Crenated Cell Elliptocytes Acanthocytes (Spur) Rouleaux Hemoglobin C Crystals Schistocytes Malaria parasites Rafa Bodies Hem Pathologist Commnt PT INR APTT Sodium Potassium Chloride Carbon Dioxide Anion Gap BUN Creatinine Estimated GFR BUN/Creatinine Ratio Glucose POC Glucose Calcium Total Bilirubin AST ALT Alkaline Phosphatase Ammonia Total Creatine Kinase CK-MB (CK-2) CK-MB (CK-2) Rel Index Troponin T Total Protein Albumin Albumin/Globulin Ratio Lipase TSH HCG, Qual Urine Color Urine Turbidity Urine pH Ur Specific [place] Urine Protein Urine Glucose (UA) Urine Ketones Urine Blood Urine Nitrite Urine Bilirubin Urine Urobilinogen Ur Leukocyte Esterase Urine WBC (Auto) Urine RBC (Auto) U Epithel Cells (Auto) Urine Mucus Urine Opiates Screen Presumptive negative Urine Methadone Screen Presumptive negative Ur Barbiturates Screen Presumptive negative Ur Phencyclidine Scrn Presumptive negative Ur Amphetamines Screen Presumptive negative U Benzodiazepines Scrn Presumptive negative Urine Cocaine Screen Presumptive negative U Marijuana (THC) Screen Presumptive positive Drugs of Abuse Note Disclamer Plasma/Serum Alcohol - EKG Data -: EKG Interpreted by [place] EKG shows normal: sinus rhythm Rate: bradycardia (49 bpm) - EKG Data Interpretation: nonspecific ST-T wave lis (T-wave inversion in lead 3, V3, V4) - Radiology Data Radiology results: report reviewed (CT head), image reviewed (CT head) [facility] [address] [place] [address] Cat Scan Report Signed Patient: FABRICIO HEWITT MR#: [id number] : 1974 Acct:[id number] Age/Sex: 43 / F ADM Date: 06/23/18 Loc: ED Attending Dr: Ordering Physician: KIMBERLY GODINEZ MD Date of Service: 06/23/18 Procedure(s) : CT head/brain wo con Accession Number(s): [id number] cc: KIMBERLY GODINEZ MD CT HEAD WITHOUT CONTRAST: HISTORY: Altered mental status. TECHNIQUE: Sequential 2.5mm CT images. COMPARISON: 08/09/17. FINDINGS: Cerebral Parenchyma: Within normal limits. Cerebellum: Within normal limits. Brainstem: Within normal limits. Ventricles: Normal. Sella: Normal. Extra-axial spaces: Normal. Basal Cisterns: Normal. Intracranial Hemorrhage: None. Midline Shift: None. Calvarium : Normal. Sinuses: Normal. Mastoid Air Cells: Normal. Visualized Orbits: Normal. IMPRESSION: Cranial CT scan within normal limits. Transcribed By: TTR Dictated By: MECHE LAZO JR, MD Electronically Authenticated By: MECHE LAZO JR, MD Signed Date/Time: 06/23/181334 DD/ 33 TD/TT: 1334 - Medical Decision Making Patient states she was diagnosed a few days ago with a right ear infection and is on medication - Differential Diagnosis hangover, alcohol intoxication Critical care attestation.: If time is entered above; I have spent that time in minutes in the direct care of this critically ill patient, excluding procedure time. ED Disposition Clinical Impression: Alcohol poisoning, Nausea and vomiting Disposition: DC-01 TO HOME OR SELFCARE Is pt being admited?: No Does the pt Need Aspirin: No Condition: Stable Instructions: Alcohol Intoxication (ED), Acute Nausea and Vomiting (ED) Additional Instructions: Return to the emergency department immediately should you develop worsening symptoms, fever, inability to tolerate food or liquid or any other concerns. Prescriptions: Famotidine [Pepcid] 20 mg PO BID #10 tablet Promethazine [Phenergan TAB] 25 mg PO Q6HR PRN #20 tab PRN Reason: Nausea Promethazine HCl [Phenergan SUPPOS] 25 mg RC Q6H PRN #5 supp.rect PRN Reason: Vomiting Referrals: PRIMARY CARE, [Primary Care Provider] - 3-5 Days Time of Disposition: 16:18
[2018-06-23 11:50] LABS: Alanine Aminotransferase 36 units/L (7-56); Albumin 4.7 g/dL (3.9-5); BUN/Creatinine Ratio 22; Blood Urea Nitrogen 11 mg/dL (7-17); Calcium 9.8 mg/dL (8.4-10.2); Hemolysis Index 8
[2018-06-23 12:03] LABS: Creatine Kinase MB 1.5 ng/mL (0.0-4.0)
[2018-06-23 12:05] LABS: INR 0.97 (0.87-1.13); Partial Thromboplastin Time 24.9 Sec. (24.2-36.6)
[2018-06-23] MEDS ORDERED: CATAPRES ONE (12:15)
[2018-06-23] MEDS ORDERED: CATAPRES PO ONE (12:21)
[2018-06-23 13:03] LABS: Eosinophils % (Manual) 0 % (0.0-4.3); RBC Morphology Normal; Total Cells Counted 100; Toxic Vacuolation Few
[2018-06-23 13:04] LABS: Platelet Estimate Cons
[2018-06-23] MEDS ORDERED: REGLAN IV ONE (13:04)
[2018-06-23 13:19] VITALS: BP 153/84
--- NOTE | 2018-06-23 13:58 | Cat Scan Report ---
CT HEAD WITHOUT CONTRAST: HISTORY: Altered mental status. TECHNIQUE: Sequential 2.5mm CT images. COMPARISON: 08/09/17. FINDINGS: Cerebral Parenchyma: Within normal limits. Cerebellum: Within normal limits. Brainstem: Within normal limits. Ventricles: Normal. Sella: Normal. Extra-axial spaces: Normal. Basal Cisterns: Normal. Intracranial Hemorrhage: None. Midline Shift: None. Calvarium: Normal. Sinuses: Normal. Mastoid Air Cells: Normal. Visualized Orbits: Normal. IMPRESSION: Cranial CT scan within normal limits.
[2018-06-23] MEDS ORDERED: PHENERGAN PR ONE (14:23)
[2018-06-23] MEDS ORDERED: BENTYL IM ONE (14:23)
[2018-06-23 15:34] LABS: Bilirubin,Urine NEG (Negative); Blood,Urine SM (Negative); Color,Urine Yellow (Yellow); Mucus,Urine FEW /HPF; Urobilinogen,Urine < 2.0 mg/dL (<2.0)
[2018-06-23 15:39] LABS: Amphetamine Screen,Urine PRESUMPTIVE NEGATIVE; Benzodiazepines Screen,Urine PRESUMPTIVE NEGATIVE; Cocaine Screen,Urine PRESUMPTIVE NEGATIVE; Methadone Screen,Urine PRESUMPTIVE NEGATIVE; Opiate Screen,Urine PRESUMPTIVE NEGATIVE
[2018-06-23 15:58] LABS: Cannabinoid Screen,Urine PRESUMPTIVE POSITIVE
== END 2018-06-23 16:33 | disposition home or self-care (01) ==
LOC: ED 10:56
DX: T51.91XA Toxic effect of unspecified alcohol, accidental (unintentional), initial encounter (principal); I10 Essential (primary) hypertension; G43.909 Migraine, unspecified, not intractable, without status migrainosus; F17.200 Nicotine dependence, unspecified, uncomplicated; F12.10 Cannabis abuse, uncomplicated; Z90.49 Acquired absence of other specified parts of digestive tract; Y92.89 Other specified places as the place of occurrence of the external cause
CPT/HCPCS: 36415; 70450; 80053; 80307; 81001; 82140; 82550; 82553; 82962; 83690; 84443; 84484; 84703; 85007; 85025; 85610; 85730; 93005; 93010; 96361; 96372; 96374; 96375; 99285; G0480; J0500; J2405; J2765; J7030; 80320

== ENCOUNTER 2019-07-05 20:42 | Emergency (ER) | payer MEDICAID, OTHER ==
--- NOTE | 2019-07-05 20:53 | Event Note ---
ED Screening Note Date of service: 07/05/19 Time: 20:48 ED Screening Note: This is a 44 y.o. F. that presents to the ER for elevated blood pressure and refills of amlodipine. Reports off medication for 2 months. Denies palpitations, chest pain, visual changes. PMH HTN Current cigarettes and marijuana smoker This initial assessment/diagnostic orders/clinical plan/treatment(s) is/are subject to change based on patients health status, clinical progression and re- assessment by fellow clinical providers in the ED. Further treatment and workup at subsequent clinical providers discretion. Patient/guardian urged not to elope from the ED as their condition may be serious if not clinically assessed and managed. Initial orders include: ACC for further evaluation
--- NOTE | 2019-07-05 22:14 | Emergency Department Report ---
ED Recheck HPI - General Chief Complaint: High BP Stated Complaint: BLOOD PRESSURE Time Seen by Provider: 07/05/19 20:48 Source: patient Mode of arrival: Ambulatory Limitations: No Limitations - History of Present Illness Initial Comments: Patient is a 44-year-old female presents to the emergency room for a medication refill. She has not taken her blood pressure medication in 3 months. She states she takes amlodipine 5 mg daily. she states she has only noticed a small amount of increased swelling in her hands. she denies any other symptoms at [facility]. She does not report any headache, vision changes, numbness, weakness, chest pain, shortness of breath, nausea, vomiting. - Related Data Previous Rx's Medication Instructions Recorded Last Taken Type Fluconazole [Diflucan] 150 mg PO ONCE #1 tablet 03/15/15 Unknown Rx cephALEXin [Keflex] 500 mg PO BID #14 capsule 03/15/15 Unknown Rx Benzonatate [Tessalon Perles] 100 mg PO Q8HR #20 capsule 11/02/17 Unknown Rx guaiFENesin [Mucinex] 600 mg PO BID #20 tab.er.12h 11/02/17 Unknown Rx traMADol [Ultram 50 MG tab] 50 mg PO Q6HR PRN #14 tablet 11/02/17 Unknown Rx Ibuprofen [Motrin] 800 mg PO Q8HR PRN #30 tablet 06/14/18 Unknown Rx Neomy/Polymyx B/Hc Otic Susp 4 drops OTIC TID #1 bottle 06/14/18 Unknown Rx [Cortisporin (Otic) Susp] Famotidine [Pepcid] 20 mg PO BID #10 tablet 06/23/18 Unknown Rx Promethazine HCl [Phenergan SUPPOS] 25 mg RC Q6H PRN #5 supp.rect 06/23/18 Unknown Rx Promethazine [Phenergan TAB] 25 mg PO Q6HR PRN #20 tab 06/23/18 Unknown Rx amLODIPine [Norvasc] 5 mg PO DAILY #30 tab 07/06/19 Unknown Rx Allergies Allergy/AdvReac Type Severity Reaction Status Date / Time No Known Allergies Allergy Verified 03/30/15 17:23 ED Review of Systems ROS: Stated complaint: BLOOD PRESSURE Other details as noted in HPI Comment: All other systems reviewed and negative ED Past Medical Hx - Past Medical History Previous Medical History?: Yes Hx Hypertension: Yes Hx Headaches / Migraines: Yes - Surgical History Past Surgical History?: Yes Hx Cholecystectomy: Yes Additional Surgical History: 4 c-sections - Social History Smoking Status: Current Every Day Smoker Substance Use Type: None - Medications Home Medications: Home Medications Medication Instructions Recorded Confirmed Last Taken Type Fluconazole [Diflucan] 150 mg PO ONCE #1 tablet 03/15/15 Unknown Rx cephALEXin [Keflex] 500 mg PO BID #14 capsule 03/15/15 Unknown Rx Benzonatate [Tessalon Perles] 100 mg PO Q8HR #20 capsule 11/02/17 Unknown Rx guaiFENesin [Mucinex] 600 mg PO BID #20 tab.er.12h 11/02/17 Unknown Rx traMADol [Ultram 50 MG tab] 50 mg PO Q6HR PRN #14 tablet 11/02/17 Unknown Rx Ibuprofen [Motrin] 800 mg PO Q8HR PRN #30 tablet 06/14/18 Unknown Rx Neomy/Polymyx B/Hc Otic Susp 4 drops OTIC TID #1 bottle 06/14/18 Unknown Rx [Cortisporin (Otic) Susp] Famotidine [Pepcid] 20 mg PO BID #10 tablet 06/23/18 Unknown Rx Promethazine HCl [Phenergan SUPPOS] 25 mg RC Q6H PRN #5 supp.rect 06/23/18 Unknown Rx Promethazine [Phenergan TAB] 25 mg PO Q6HR PRN #20 tab 06/23/18 Unknown Rx amLODIPine [Norvasc] 5 mg PO DAILY #30 tab 07/06/19 Unknown Rx ED Physical Exam - General Limitations: No Limitations General appearance: alert, in no apparent distress - Head Head exam: Present: atraumatic, normocephalic - Eye Eye exam: Present: normal appearance, PERRL, EOMI - ENT ENT exam: Present: mucous membranes moist - Neurological Exam Neurological exam: Present: alert, oriented X3 - Psychiatric Psychiatric exam: Present: normal affect, normal mood - Skin Skin exam: Present: warm, dry, intact ED Course Vital Signs 07/05/19 07/06/19 20:49 00:50 Temperature 98.1 F Pulse Rate 101 H 95 H Respiratory 18 Rate Blood Pressure 165/111 203/129 O2 Sat by Pulse 98 Oximetry ED Recheck MDM - Medical Decision Making Patient is a 44-year-old female presents to the emergency room for a medication refill. She has not taken her blood pressure medication in 3 months. She states she takes amlodipine 5 mg daily. she states she has only noticed a small amount of increased swelling in her hands. she denies any other symptoms at all. She does not report any headache, vision changes, numbness, weakness, chest pain, shortness of breath, nausea, vomiting. initially BP in triage was 165/111. pt became upset after getting news that her young daughter was ill and needed to be transferred to a [facility], she was tearful and worried. her repeat blood pressure was elevated. pt given her blood pressure medication that she is supposed to be taking at home. pt states that she could not stay for her repeat blood pressure because she must go be with her daughter. pt given a prescription for a 1 month supply of her blood pressure medication. advised to please take medication as prescribed. Keep a blood pressure log and eat a low sodium diet. Follow-up with primary care doctor the next 2-3 days. Future refills of your blood pressure medication will need to come through a primary care doctor. Return to the emergency room for any new or worsening symptoms. Critical care attestation.: If time is entered above; I have spent that time in minutes in the direct care of this critically ill patient, excluding procedure time. ED Disposition Clinical Impression: Medication refill Disposition: DC-01 TO HOME OR SELFCARE Is pt being admited?: No Does the pt Need Aspirin: No Condition: Stable Instructions: Chronic Hypertension (ED) Additional Instructions: please take medication as prescribed. Keep a blood pressure log and eat a low sodium diet. Follow-up with primary care doctor the next 2-3 days. Future refi lls of your blood pressure medication will need to come through a primary care doctor. Return to the emergency room for any new or worsening symptoms. Prescriptions: amLODIPine [Norvasc] 5 mg PO DAILY #30 tab Referrals: ED LLANOS MD [Primary Care Provider] - 2-3 Days [facility] [Outside] - 2-3 Days [facility] [Provider Group] - 2-3 Days Time of Disposition: 00:06 Print Language: KOSOVAN
[2019-07-06] MEDS ORDERED: NORVASC PO ONE (00:46)
[2019-07-06 06:51] VITALS: BP 166/90
== END 2019-07-06 01:50 | disposition home or self-care (01) ==
LOC: ED 20:42
DX: I10 Essential (primary) hypertension (principal); G43.909 Migraine, unspecified, not intractable, without status migrainosus; F17.200 Nicotine dependence, unspecified, uncomplicated; F12.10 Cannabis abuse, uncomplicated; Z90.49 Acquired absence of other specified parts of digestive tract; Z79.899 Other long term (current) drug therapy; Z76.0 Encounter for issue of repeat prescription
CPT/HCPCS: 99282

== ENCOUNTER 2019-07-25 00:15 | Emergency (ER) | payer OTHER ==
[2019-07-25] MEDS ORDERED: XYLOCAINE 1%/ EPI 1:100,000 INFILTRATI ONE (01:46)
[2019-07-25] MEDS ORDERED: BACTRIM DS PO ONE (01:46)
[2019-07-25] MEDS ORDERED: TORADOL IM ONE (01:48)
[2019-07-25] MEDS ORDERED: NORCO 5/325 PO ONE (02:06)
--- NOTE | 2019-07-25 02:26 | Emergency Department Report ---
ED General Adult HPI - General Chief complaint: Skin/Abscess/Foreign Body Stated complaint: POSS INSECT BITE Time Seen by Provider: 07/25/19 01:42 Source: patient, family Mode of arrival: Ambulatory Limitations: No Limitations - History of Present Illness Initial comments: Patient is a 44-year-old black female who is presenting with pain to the right anterior thigh. Then present for approximately 2 days. 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 Patient states is now redness and swelling and pain on palpation. Pain is 10 out of 10 as hurt worse with palpation and when she is sitting with her hip flexed. She denies any fevers chills nausea vomiting diarrhea at this time. Patient also states she has chronic lower back pain that is worsening over the last several years. Patient states this is worse when she is trying to stand and is 8 out of 10 in severity. Patient states that sometimes it feels as though her back is cracking. She denies any bowel or bladder dysfunction at this time. Patient states the back pain does radiate down the right leg occasionally. - Related Data Previous Rx's Medication Instructions Recorded Last Taken Type Fluconazole [Diflucan] 150 mg PO ONCE #1 tablet 03/15/15 Unknown Rx cephALEXin [Keflex] 500 mg PO BID #14 capsule 03/15/15 Unknown Rx Benzonatate [Tessalon Perles] 100 mg PO Q8HR #20 capsule 11/02/17 Unknown Rx guaiFENesin [Mucinex] 600 mg PO BID #20 tab.er.12h 11/02/17 Unknown Rx traMADol [Ultram 50 MG tab] 50 mg PO Q6HR PRN #14 tablet 11/02/17 Unknown Rx Ibuprofen [Motrin] 800 mg PO Q8HR PRN #30 tablet 06/14/18 Unknown Rx Neomy/Polymyx B/Hc Otic Susp 4 drops OTIC TID #1 bottle 06/14/18 Unknown Rx [Cortisporin (Otic) Susp] Famotidine [Pepcid] 20 mg PO BID #10 tablet 06/23/18 Unknown Rx Promethazine HCl [Phenergan SUPPOS] 25 mg RC Q6H PRN #5 supp.rect 06/23/18 Unknown Rx Promethazine [Phenergan TAB] 25 mg PO Q6HR PRN #20 tab 06/23/18 Unknown Rx amLODIPine [Norvasc] 5 mg PO DAILY #30 tab 07/06/19 Unknown Rx Clindamycin [Clindamycin CAP] 300 mg PO Q8H #21 cap 07/25/19 Unknown Rx HYDROcodone/APAP 5-325 [[place] 1 each PO Q6HR PRN #14 tablet 07/25/19 Unknown Rx 5/325] methOCARBAMOL [Robaxin TAB] 500 mg PO Q6H PRN #14 tablet 07/25/19 Unknown Rx predniSONE [Deltasone] 20 mg PO QDAY #5 tab 07/25/19 Unknown Rx Allergies Allergy/AdvReac Type Severity Reaction Status Date / Time No Known Allergies Allergy Verified 03/30/15 17:23 ED Review of Systems ROS: Stated complaint: POSS INSECT BITE Other details as noted in HPI Comment: All other systems reviewed and negative ED Past Medical Hx - Past Medical History Previous Medical History?: Yes Hx Hypertension: Yes Hx Headaches / Migraines: Yes - Surgical History Past Surgical History?: Yes Hx Cholecystectomy: Yes Additional Surgical History: 4 c-sections - Social History Smoking Status: Current Every Day Smoker Substance Use Type: None - Medications Home Medications: Home Medications Medication Instructions Recorded Confirmed Last Taken Type Fluconazole [Diflucan] 150 mg PO ONCE #1 tablet 03/15/15 Unknown Rx cephALEXin [Keflex] 500 mg PO BID #14 capsule 03/15/15 Unknown Rx Benzonatate [Tessalon Perles] 100 mg PO Q8HR #20 capsule 11/02/17 Unknown Rx guaiFENesin [Mucinex] 600 mg PO BID #20 tab.er.12h 11/02/17 Unknown Rx traMADol [Ultram 50 MG tab] 50 mg PO Q6HR PRN #14 tablet 11/02/17 Unknown Rx Ibuprofen [Motrin] 800 mg PO Q8HR PRN #30 tablet 06/14/18 Unknown Rx Neomy/Polymyx B/Hc Otic Susp 4 drops OTIC TID #1 bottle 06/14/18 Unknown Rx [Cortisporin (Otic) Susp] Famotidine [Pepcid] 20 mg PO BID #10 tablet 06/23/18 Unknown Rx Promethazine HCl [Phenergan SUPPOS] 25 mg RC Q6H PRN #5 supp.rect 06/23/18 Unknown Rx Promethazine [Phenergan TAB] 25 mg PO Q6HR PRN #20 tab 06/23/18 Unknown Rx amLODIPine [Norvasc] 5 mg PO DAILY #30 tab 07/06/19 Unknown Rx Clindamycin [Clindamycin CAP] 300 mg PO Q8H #21 cap 07/25/19 Unknown Rx HYDROcodone/APAP 5-325 [[place] 1 each PO Q6HR PRN #14 tablet 07/25/19 Unknown Rx 5/325] methOCARBAMOL [Robaxin TAB] 500 mg PO Q6H PRN #14 tablet 07/25/19 Unknown Rx predniSONE [Deltasone] 20 mg PO QDAY #5 tab 07/25/19 Unknown Rx ED Physical Exam - General Limitations: No Limitations General appearance: alert, in no apparent distress - Head Head exam: Present: atraumatic, normocephalic - Eye Eye exam: Present: normal appearance - ENT ENT exam: Present: mucous membranes moist - Neck Neck exam: Present: normal inspection - Respiratory Respiratory exam: Present: normal lung sounds bilaterally. Absent: respiratory distress, wheezes, rales, rhonchi - Cardiovascular Cardiovascular Exam: Present: regular rate, normal rhythm, normal heart sounds. Absent: systolic murmur, diastolic murmur, rubs, gallop - GI/Abdominal GI/Abdominal exam: Present: soft, normal bowel sounds. Absent: distended, tenderness, guarding, rebound - Extremities Exam Extremities exam: Present: normal inspection - Back Exam Back exam: Present: normal inspection, tenderness (rigjht lower lumbar) - Neurological Exam Neurological exam: Present: alert, oriented X3 - Psychiatric Psychiatric exam: Present: normal affect, normal mood - Skin Skin exam: Present: warm, dry, intact, normal color, other (patient's anterior right proximal thigh laterally has a large area of erythema with induration and warmth with central fluctuance consistent with an abscess surrounded by cellulitic skin.). Absent: rash ED Course Vital Signs 07/25/19 00:29 Temperature 98.9 F Pulse Rate 84 Respiratory 18 Rate Blood Pressure 176/114 O2 Sat by Pulse 100 Oximetry - I & D Right Anterior Proximal Thigh Type of Procedure: Complex Blade Size: 11 I & D Procedure: betadine prep, sterile drapes applied, sterile dressing applied, gauze wick placed Progress: Able to express a moderate amount of purulent material. Loculations were broken up using hemostat and the area was irrigated with normal saline. Critical care attestation.: If time is entered above; I have spent that time in minutes in the direct care of this critically ill patient, excluding procedure time. ED Disposition Clinical Impression: Abscess Cellulitis Qualifiers: Site of cellulitis: extremity Site of cellulitis of extremity: lower extremity Laterality: right Qualified Code(s): L03.115 - Cellulitis of right lower limb Chronic back pain Qualifiers: Back pain location: low back pain Back pain laterality: right Sciatica presence: with sciatica Sciatica laterality: sciatica of right side Qualified Code(s): M54.41 - Lumbago with sciatica, right side; G89.29 - Other chronic pain Disposition: TO HOME OR SELFCARE Is pt being admited?: No Does the pt Need Aspirin: No Condition: Stable Instructions: Lumbar Radiculopathy (ED), Abscess (ED), Abscess Incision and Drainage (ED) Referrals: PRIMARY MD NADIYA [Primary Care Provider] - 3-5 Days KENNETH ACKERMAN MD [Staff Physician] - 3-5 Days Time of Disposition:
[2019-07-25 03:09] VITALS: BP 149/91
== END 2019-07-25 03:06 | disposition home or self-care (01) ==
LOC: ED 00:15
DX: L02.415 Cutaneous abscess of right lower limb (principal); L03.115 Cellulitis of right lower limb; G89.29 Other chronic pain; M54.9 Dorsalgia, unspecified; I10 Essential (primary) hypertension; G43.909 Migraine, unspecified, not intractable, without status migrainosus; F17.200 Nicotine dependence, unspecified, uncomplicated; Z90.49 Acquired absence of other specified parts of digestive tract; Z79.899 Other long term (current) drug therapy
CPT/HCPCS: 10061; 96372; 99282; J1885

== ENCOUNTER 2019-08-08 18:09 | Emergency (ER) | payer OTHER ==
--- NOTE | 2019-08-08 18:41 | Event Note ---
ED Screening Note Date of service: 08/08/19 Time: 18:42 ED Screening Note: 44 yo female presents with acute on chronic low back pain from clipped disc months ago denies dysuria This initial assessment/diagnostic orders/clinical plan/treatment(s) is/are subject to change based on patients health status, clinical progression and re- assessment by fellow clinical providers in the ED. Further treatment and workup at subsequent clinical providers discretion. Patient/guardian urged not to elope from the ED as their condition may be serious if not clinically assessed and managed. Initial orders include: ACC eval pain control
[2019-08-08] MEDS ORDERED: TORADOL IM ONE (21:00)
[2019-08-08] MEDS ORDERED: DELTASONE PO ONE (21:00)
--- NOTE | 2019-08-08 22:18 | Emergency Department Report ---
ED Back Pain/Injury HPI - General Chief Complaint: Back Pain/Injury Stated Complaint: BACK PAIN Time Seen by Provider: 08/08/19 18:34 Source: patient Limitations: No Limitations - History of Present Illness Initial Comments: pt is a 44 y/o aaf who presents for low back pain 5/10 statss she hurt he back picking up bag of dog food at grocery store now with 5/10 low back pain , pain exacerbated by bending twisting there is no weakness no numbness no tingling, no loss or decrease in bowel or bladder function, pt remains ambulatory to baseline per patient. MD Complaint: back pain Onset/Timin -: Sudden, days(s) Similar Symptoms Previously: Yes Place: home Radiation: right leg Severity: moderate Severity scale (0 -10): 5 Quality: dull Consistency: intermittent Improves With: none Worsens With: immobilization Associated Symptoms: syncope. denies: weakness, chest pain, numbness, difficulty urinating, incontinence, fever/chills, constipation - Related Data Previous Rx's Medication Instructions Recorded Last Taken Type Fluconazole [Diflucan] 150 mg PO ONCE #1 tablet 03/15/15 Unknown Rx cephALEXin [Keflex] 500 mg PO BID #14 capsule 03/15/15 Unknown Rx Benzonatate [Tessalon Perles] 100 mg PO Q8HR #20 capsule 11/02/17 Unknown Rx guaiFENesin [Mucinex] 600 mg PO BID #20 tab.er.12h 11/02/17 Unknown Rx traMADol [Ultram 50 MG tab] 50 mg PO Q6HR PRN #14 tablet 11/02/17 Unknown Rx Ibuprofen [Motrin] 800 mg PO Q8HR PRN #30 tablet 06/14/18 Unknown Rx Neomy/Polymyx B/Hc Otic Susp 4 drops OTIC TID #1 bottle 06/14/18 Unknown Rx [Cortisporin (Otic) Susp] Promethazine HCl [Phenergan SUPPOS] 25 mg RC Q6H PRN #5 supp.rect 06/23/18 Unknown Rx Promethazine [Phenergan TAB] 25 mg PO Q6HR PRN #20 tab 06/23/18 Unknown Rx Clindamycin [Clindamycin CAP] 300 mg PO Q8H #21 cap 07/25/19 Unknown Rx HYDROcodone/APAP 5-325 [[place] 1 each PO Q6HR PRN #14 tablet 07/25/19 Unknown Rx 5/325] methOCARBAMOL [Robaxin TAB] 500 mg PO Q6H PRN #14 tablet 07/25/19 Unknown Rx predniSONE [Deltasone] 20 mg PO QDAY #5 tab 07/25/19 Unknown Rx Cyclobenzaprine [Flexeril] 10 mg PO TID PRN #30 tablet 08/08/19 Unknown Rx Famotidine [Pepcid] 20 mg PO BID #30 tablet 08/08/19 Unknown Rx Naproxen [Naprosyn] 500 mg PO BID PRN #30 tablet 08/08/19 Unknown Rx amLODIPine [Norvasc] 5 mg PO DAILY #30 tab 08/08/19 Unknown Rx predniSONE [Deltasone] 40 mg PO QDAY 5 Days #20 tab 08/08/19 Unknown Rx Allergies Allergy/AdvReac Type Severity Reaction Status Date / Time No Known Allergies Allergy Verified 03/30/15 17:23 ED Review of Systems ROS: Stated complaint: BACK PAIN Other details as noted in HPI Constitutional: denies: chills, fever Eyes: denies: eye pain, eye discharge, vision change ENT: denies: ear pain, throat pain Respiratory: denies: cough, shortness of breath, wheezing Cardiovascular: orthopnea. denies: chest pain, palpitations Endocrine: no symptoms reported Gastrointestinal: denies: abdominal pain, nausea, diarrhea Genitourinary: denies: urgency, dysuria, discharge Musculoskeletal: back pain, arthralgia, myalgia Skin: denies: rash, lesions Neurological: denies: headache, weakness, paresthesias Psychiatric: denies: anxiety, depression Hematological/Lymphatic: denies: easy bleeding, easy bruising ED Past Medical Hx - Past Medical History Previous Medical History?: Yes Hx Hypertension: Yes Hx Headaches / Migraines: Yes - Surgical History Past Surgical History?: Yes Hx Cholecystectomy: Yes Additional Surgical History: 4 c-sections - Social History Smoking Status: Former Smoker - Medications Home Medications: Home Medications Medication Instructions Recorded Confirmed Last Taken Type Fluconazole [Diflucan] 150 mg PO ONCE #1 tablet 03/15/15 Unknown Rx cephALEXin [Keflex] 500 mg PO BID #14 capsule 03/15/15 Unknown Rx Benzonatate [Tessalon Perles] 100 mg PO Q8HR #20 capsule 11/02/17 Unknown Rx guaiFENesin [Mucinex] 600 mg PO BID #20 tab.er.12h 11/02/17 Unknown Rx traMADol [Ultram 50 MG tab] 50 mg PO Q6HR PRN #14 tablet 11/02/17 Unknown Rx Ibuprofen [Motrin] 800 mg PO Q8HR PRN #30 tablet 06/14/18 Unknown Rx Neomy/Polymyx B/Hc Otic Susp 4 drops OTIC TID #1 bottle 06/14/18 Unknown Rx [Cortisporin (Otic) Susp] Promethazine HCl [Phenergan SUPPOS] 25 mg RC Q6H PRN #5 supp.rect 06/23/18 Unknown Rx Promethazine [Phenergan TAB] 25 mg PO Q6HR PRN #20 tab 06/23/18 Unknown Rx Clindamycin [Clindamycin CAP] 300 mg PO Q8H #21 cap 07/25/19 Unknown Rx HYDROcodone/APAP 5-325 [[place] 1 each PO Q6HR PRN #14 tablet 07/25/19 Unknown Rx 5/325] methOCARBAMOL [Robaxin TAB] 500 mg PO Q6H PRN #14 tablet 07/25/19 Unknown Rx predniSONE [Deltasone] 20 mg PO QDAY #5 tab 07/25/19 Unknown Rx Cyclobenzaprine [Flexeril] 10 mg PO TID PRN #30 tablet 08/08/19 Unknown Rx Famotidine [Pepcid] 20 mg PO BID #30 tablet 08/08/19 Unknown Rx Naproxen [Naprosyn] 500 mg PO BID PRN #30 tablet 08/08/19 Unknown Rx amLODIPine [Norvasc] 5 mg PO DAILY #30 tab 08/08/19 Unknown Rx predniSONE [Deltasone] 40 mg PO QDAY 5 Days #20 tab 08/08/19 Unknown Rx ED Physical Exam - General Limitations: No Limitations General appearance: alert, in no apparent distress - Head Head exam: Present: atraumatic, normocephalic - Eye Eye exam: Present: normal appearance, PERRL Pupils: Present: normal accommodation - ENT ENT exam: Present: mucous membranes moist - Neck Neck exam: Present: normal inspection, full ROM. Absent: tenderness, meningismus, lymphadenopathy - Respiratory Respiratory exam: Present: normal lung sounds bilaterally. Absent: wheezes, stridor, chest wall tenderness - Cardiovascular Cardiovascular Exam: Present: regular rate, normal rhythm, normal heart sounds. Absent: systolic murmur, diastolic murmur, rubs, gallop - GI/Abdominal GI/Abdominal exam: Present: soft, normal bowel sounds. Absent: distended, tenderness, guarding, rebound, rigid, bruit, hernia - External exam: Present: normal external exam - Extremities Exam Extremities exam: Present: normal inspection, full ROM, normal capillary refill. Absent: tenderness, pedal edema, joint swelling, calf tenderness - Back Exam Back exam: Present: full ROM, tenderness (no posterior vertebral point tenderness mild pars), muscle spasm, paraspinal tenderness. Absent: CVA tenderness (R), CVA tenderness (L), vertebral tenderness, rash noted - Expanded Back Exam Expanded Back exam: Absent: saddle anesthesia Back exam: Sciatic Notch Tenderness: Right, Left - Neurological Exam Neurological exam: Present: alert, oriented X3, CN II-XII intact, normal gait, reflexes normal - Psychiatric Psychiatric exam: Present: normal affect. Absent: normal mood - Skin Skin exam: Present: warm, dry, intact, normal color. Absent: rash ED Course Vital Signs 08/08/19 08/08/19 18:41 21:30 Temperature 98.6 F Pulse Rate 70 Respiratory 16 Rate Blood Pressure 148/90 O2 Sat by Pulse 98 Oximetry Critical care attestation.: If time is entered above; I have spent that time in minutes in the direct care of this critically ill patient, excluding procedure time. ED Disposition Clinical Impression: Back strain Qualifiers: Encounter type: initial encounter Qualified Code(s): S39.012A - Strain of muscle, fascia and tendon of lower back, initial encounter Disposition: DC/TX-70 ANOTHER TYPE HLTHCARE Is pt being admited?: No Does the pt Need Aspirin: No Condition: Stable Prescriptions: predniSONE [Deltasone] 40 mg PO QDAY 5 Days #20 tab Cyclobenzaprine [Flexeril] 10 mg PO TID PRN #30 tablet PRN Reason: Muscle Spasm Naproxen [Naprosyn] 500 mg PO BID PRN #30 tablet PRN Reason: pain amLODIPine [Norvasc] 5 mg PO DAILY #30 tab Famotidine [Pepcid] 20 mg PO BID #30 tablet Referrals: BJ RYAN MD [Emergency Provider] - 3-5 Days Forms: Work/School Release Form(ED) Time of Disposition: 22:10
[2019-08-08] MEDS ORDERED: NORVASC PO ONE (23:15)
[2019-08-08] MEDS ORDERED: NORVASC ONE (23:18)
[2019-08-09 00:05] VITALS: BP 177/84
== END 2019-08-09 00:07 | disposition home or self-care (01) ==
LOC: ED 18:09
DX: S39.012A Strain of muscle, fascia and tendon of lower back, initial encounter (principal); I10 Essential (primary) hypertension; G43.909 Migraine, unspecified, not intractable, without status migrainosus; Z79.899 Other long term (current) drug therapy; Z87.891 Personal history of nicotine dependence; X58.XXXA Exposure to other specified factors, initial encounter; Y93.89 Activity, other specified; Y92.89 Other specified places as the place of occurrence of the external cause; Y99.8 Other external cause status
CPT/HCPCS: 96372; 99282; J1885; J7512